=== PATIENT | male | born 1995 | race Caucasian/White ===

== ENCOUNTER 2017-09-06 16:52 | Emergency (ER) | payer OTHER ==
--- NOTE | 2017-09-06 17:56 | ED ---
Respiratory - HPI Summary HPI Summary: 21 YO M SINUS PRESSURE WITH YELLOW RHINORRHEA WITH SORE THROAT FOR DAYS. - History of Current Complaint Chief Complaint: UCRespiratory Stated Complaint: URI Time Seen by Provider: 09/06/17 17:40 - Allergy/Home Medications Allergies/Adverse Reactions: Allergies Allergy/AdvReac Type Severity Reaction Status Date / Time Cefdinir Allergy Rash Verified 09/06/17 17:01 Home Medications: Home Medications Calcium Carbonate [Calcium] 500 mg PO DAILY 09/06/17 [History Confirmed 09/06/17 ] Cetirizine* [ZyrTEC 10 MG TAB*] 10 mg PO DAILY 09/06/17 [History Confirmed 09/06] PMH/Surg Hx/FS Hx/Imm Hx EENT History: Reports: Other - DEVIATED SEPTUM AND RECURRENT SINUSITIS - Surgical History Surgery Procedure, Year, and Place: wrist Infectious Disease History: No Infectious Disease History: Denies: Hx Clostridium Difficile, Hx Hepatitis, Hx Human Immunodeficiency Virus (HIV), Hx of Known/Suspected MRSA, Hx Shingles, Hx Tuberculosis, Hx Known/ Suspected VRE, Hx Known/Suspected VRSA, History Other Infectious Disease, Traveled Outside the [place] in Last 30 Days - Social History Alcohol Use: Rare Substance Use Type: Reports: None Smoking Status (MU): Never Smoked Tobacco Review of Systems Negative: Fever Eyes: Negative Positive: Sore Throat, Nasal Discharge Cardiovascular: Negative Positive: Cough Gastrointestinal: Negative Genitourinary: Negative Musculoskeletal: Negative Skin: Negative Neurological: Negative Psychological: Normal All Other Systems Reviewed And Are Negative: Yes Physical Exam Triage Information Reviewed: Yes Vital Signs On Initial Exam: Initial Vitals Temp Pulse Resp Pulse Ox 98.3 F 70 20 100 09/06/17 17:03 09/06/17 17:03 09/06/17 17:03 09/06/17 17:03 Vital Signs Reviewed: Yes Appearance: Positive: Ill-Appearing - MILD Skin: Positive: Warm, Skin Color Reflects Adequate Perfusion Head/Face: Positive: Normal Head/Face Inspection Eyes: Positive: Normal, EOMI, LYNETTE ENT: Positive: Pharyngeal erythema, Tonsillar swelling. Negative: Muffled voice Neck: Positive: Supple, Enlarged Nodes @ - ANTERIOR Cardiovascular: Positive: Normal, RRR Abdomen Description: Positive: Nontender Bowel Sounds: Positive: Present Musculoskeletal: Positive: Normal Neurological: Positive: Normal Psychiatric: Positive: Normal AVPU Assessment: Alert Diagnostics - Vital Signs Vital Signs Temp Pulse Resp Pulse Ox 09/06/17 17:03 98.3 F 70 20 100 - Laboratory Lab Results: Lab Results 09/06/17 Range/Units 17:02 Group A Strep Rapid Negative (Negative) Lab Statement: Any lab studies that have been ordered have been reviewed, and results considered in the medical decision making process. Disposition - Course Course Of Treatment: DISCUSSES SX CARE/ABX RX. AT THIS TIME, WITH HX OF RECURRENT SINUSITIS, THE PATIENT PREFERS TO HAVE ABX RX. - Diagnoses Provider Diagnoses: Sinusitis, Pharyngitis Discharge - Discharge Plan Condition: Stable Disposition: HOME Prescriptions: Amoxicillin/Clavulanate TAB* [Augmentin TAB 875*] 875 mg PO BID #20 tab Patient Education Materials: Pharyngitis (ED), Sinusitis (ED) Referrals: [facility] @ [Outside] Additional Instructions: FOLLOW UP WITH YOUR DOCTOR. GET RECHECKED FOR ANY WORSENING OF YOUR CONDITION OR QUESTIONS OR CONCERNS.
== END 2017-09-06 18:01 | disposition home or self-care (01) ==
LOC: UCEAST 16:52
DX: J32.9 Chronic sinusitis, unspecified (principal); J02.9 Acute pharyngitis, unspecified; J34.2 Deviated nasal septum; Z88.1 Allergy status to other antibiotic agents
CPT/HCPCS: 87651; 99202; G0463

== ENCOUNTER 2018-06-28 14:01 | Emergency (ER) | payer OTHER ==
[2018-06-28 14:21] VITALS: BP 115/65
--- NOTE | 2018-06-28 14:39 | UC ---
Respiratory Complaint HPI - HPI Summary HPI Summary: 22 y/o male presents to the urgent care c/o RT side rib pain s/p being hit on the RT side of chest by another player during a basketball game 2 days ago. Pain has increased , specially laying down or w/ deep breathing. Pain is 7/10 sharp w/ movement and sleeping. he has not been able to sleep well last night. He has midl nausea last night. Pt has taking Ibuprofen PO to alleviate symptoms. Pt denies SOB, difficulty breathing, chest pain, abdominal pain, V/D, dizziness. - History of Current Complaint Chief Complaint: UCGeneralIllness Stated Complaint: ABD PAIN, DIFFICULTY BREATHING IN PRONE POSITION Time Seen by Provider: 06/28/18 14:37 Hx Obtained From: Patient Onset/Duration: Sudden Onset, Lasting Days - 2 days ago, Still Present, Worse Since - yesterday Timing: Intermittent Episodes Severity Initially: Moderate Severity Currently: Moderate Pain Intensity: 7 Pain Scale Used: 0-10 Numeric Aggravating Factors: Recumbent Position, Other - certain movment and deep breathing Alleviating Factors: OTC Meds - ibuprofen 200mg PO Associated Signs And Symptoms: Positive: Negative. Negative: Dyspnea, Fever, Chills, Wheezing, Dizziness, URI, Nasal Congestion - Risk Factors Pulmonary Embolism Risk Factors: Negative Cardiac Risk Factors: Negative Pseudomonas Risk Factors: Negative Tuberculosis Risk Factors: Negative - Allergies/Home Medications Allergies/Adverse Reactions: Allergies Allergy/AdvReac Type Severity Reaction Status Date / Time cefdinir Allergy Rash Verified 06/28/18 14:14 PMH/Surg Hx/FS Hx/Imm Hx Previously Healthy: Yes - Pt denies PMHX - Surgical History Surgical History: Yes Surgery Procedure, Year, and Place: right wrist fracture - Family History Known Family History: Positive: Diabetes - Social History Occupation: Student Lives: With Family Alcohol Use: Rare Substance Use Type: None Smoking Status (MU): Never Smoked Tobacco - Immunization History Vaccination Up to Date: Yes Review of Systems Constitutional: Negative Skin: Negative Eyes: Negative ENT: Negative Respiratory: Negative Cardiovascular: Negative Gastrointestinal: Nausea Genitourinary: Negative Motor: Negative Neurovascular: Negative Musculoskeletal: Other: - RT side rib pain s/p injury Neurological: Negative Psychological: Negative Is Patient Immunocompromised?: No All Other Systems Reviewed And Are Negative: Yes Physical Exam - Summary Physical Exam Summary: Vital Signs Reviewed: Yes General: well developed, well nourished male adolescent sitting in the examining table w/o any apparent distress Eyes: Positive: Conjunctiva Clear - PERRLA, EOMI, fundi grossly normal ENT: Positive: Normal ENT inspection, Hearing grossly normal, Pharynx normal, Nasal congestion - edematous and erythematous nasal mucosa, Nasal drainage - yellowish drainage, TMs normal. Negative: Tonsillar swelling, Tonsillar exudate Neck: Positive: Supple, Nontender, No Lymphadenopathy Respiratory: no orthopnea or dyspnea. Able to speak in full sentences, no retractions or accessory muscle use, no tripod position, stridor, or head bobbing. Positive breath sounds bilaterally. No wheezing, rhonchi , no crackles or rales. Point tenderness over the RT side of chest around ribs 8-10 w/o any ecchymosis or bruising, swelling. Pain elicit upon standing or movement of w/ deep breathing Cardiovascular: Positive: RRR, No Murmur, Pulses Normal, Brisk Capillary Refill Abdomen Description: Positive: Nontender, No Organomegaly, Soft. Negative: CVA Tenderness (R), CVA Tenderness (L) Bowel Sounds: Positive: Present Musculoskeletal Exam: Normal Musculoskeletal: Positive: Strength Intact, ROM Intact, No Edema Neurological Exam: Normal Psychological Exam: Normal Skin Exam: Normal Triage Information Reviewed: Yes Vital Signs: Initial Vital Signs Temp 97.6 F 06/28/18 14:16 Pulse 72 06/28/18 14:16 Resp 16 06/28/18 14:16 BP 115/65 06/28/18 14:16 Pulse Ox 99 06/28/18 14:16 Diagnostic Evaluation - Laboratory O2 Sat by Pulse Oximetry: 99 Respiratory Course/Dx - Course Course Of Treatment: 22 y/o male presents to the urgent care c/o RT side rib pain s/p being hit on the RT side of chest by another player during a basketball game 2 days ago. Pain has increased , specially laying down or w/ deep breathing. Pain is 7/10 sharp w/ movement and sleeping. he has not been able to sleep well last night. He has midl nausea last night. Pt has taking Ibuprofen PO to alleviate symptoms. Pt denies SOB, difficulty breathing, chest pain, abdominal pain, V/D, dizziness. Hx obtained. Pt w/ Positive breath sounds bilaterally. No wheezing, rhonchi , no crackles or rales. Point tenderness over the RT side of chest around ribs 8-10 w/o any ecchymosis or bruising, swelling. Pain elicit upon standing or movement of w/ deep breathing on examination. O2Sat: 99%. Pt is hemodynamically stable. RT Rib and Chest X-ray ordered to r/o fracture. Impression:Possible nondisplaced fracture of the anterior Rib 9, no pneumothorax or effusion observed. Pt's symptoms discussed w / DR Vogel and he recommended Incentive spirometry if Pt w/o any abdominal tenderness. Pt's Abdomen is WNL. Pt given an Incentive Spirometer to improve lung function and avoid atelectasis. Nurse educated Pt on how to use it. Pt Rx Ibuprofen PO and advised to f/u w/ his PCP for further management on his Rib fracture. Also advised to avoid strenuous exercise or heavy lifting. D/C instructions explained. Pt understood and agreed w/ plan of care and lef eft clinic ambulating and hemodynamically stable. - Differential Dx/Diagnosis Differential Diagnosis/HQI/PQRI: Bronchitis, Lower Resp Infection, Other - chostochondritis, rib fracture, hematoma Provider Diagnoses: 1- Rt side rib pain s/p injury. 2- RT anterior nondisplaced fracture of RIB 9 Discharge - Sign-Out/Discharge Documenting (check all that apply): Patient Departure - D/c home All imaging exams completed and their final reports reviewed: Yes - Discharge Plan Condition: Stable Disposition: HOME Prescriptions: Ibuprofen TAB* [Motrin TAB* 800 MG] 800 mg PO Q6H PRN #30 tab PRN Reason: Pain Patient Education Materials: Rib Fracture (ED) Forms: *School Release Referrals: [facility] [place] [facility] [Outside] - 3 Days Additional Instructions: 1-Please take ibuprofen PO q6-8hrs prn as instructed after meals to alleviate pain and swelling. rest and avoid strenuous exercise or heavy lifting 2-Please use the Incentive Spirometry as the Nurse explained to improve lung function 3-If symptoms do not improve or worsen please f/u w/ your PCP in 3 days for further evaluation and treatment. 4- If your develop severe SOB, difficulty breathing or severe abdominal pain please go immediately to the ER for further management - Billing Disposition and Condition Condition: STABLE Disposition: Home - Attestation Statements Provider Attestation: Per institutional requirements, I have reviewed the chart, however, I was not consulted specifically or made aware of this patient by the midlevel provider. I did not personally evaluate, interact with , or disposition this patient.
--- NOTE | 2018-06-28 15:14 | RAD ---
INDICATION: Right rib injury. COMPARISON: There are no relevant prior studies available for comparison. TECHNIQUE: 4 views of the right ribs and dual-energy PA views of the chest were obtained. FINDINGS: There is a nondisplaced fracture of the anterior right ninth rib. No other fractures are seen. The heart is within normal limits in size. The lungs are clear. There is no evidence for pneumothorax or pleural effusion. IMPRESSION: NONDISPLACED FRACTURE OF THE ANTERIOR RIGHT NINTH RIB.
== END 2018-06-28 15:42 | disposition home or self-care (01) ==
LOC: UCEAST 14:01
DX: S22.31XA Fracture of one rib, right side, initial encounter for closed fracture (principal); W50.0XXA Accidental hit or strike by another person, initial encounter; Y93.67 Activity, basketball; Y92.310 Basketball court as the place of occurrence of the external cause; Z88.1 Allergy status to other antibiotic agents
CPT/HCPCS: 99211; G0463

== ENCOUNTER 2018-08-07 13:27 | Emergency (ER) | payer MEDICAID, OTHER ==
[2018-08-07 13:35] VITALS: BP 125/80
--- NOTE | 2018-08-07 13:39 | UC ---
Throat Pain/Nasal Peter HPI - HPI Summary HPI Summary: 22 yo male presents with sinus pain/pressure/congestion for the last week. He tells me that he has a history of recurrent sinus infections. He has been taking mucinex, ibuprofen, and using flonase with no relief of his symptoms. Yesterday he started with a mildly productive cough that he contributes to post nasal drip. Denies fever, chills. - History of Current Complaint Chief Complaint: UCRespiratory Stated Complaint: THROAT PAIN Time Seen by Provider: 08/07/18 13:39 Hx Obtained From: Patient Onset/Duration: Gradual Onset Severity: Moderate Pain Intensity: 7 Pain Scale Used: 0-10 Numeric - Allergies/Home Medications Allergies/Adverse Reactions: Allergies Allergy/AdvReac Type Severity Reaction Status Date / Time cefdinir Allergy Rash Verified 08/07/18 13:35 Home Medications: Home Medications Dm/Acetaminophen/Doxylamine [Night Cold-Flu Relief Liq Gel] 1 each PO ONCE PRN 08/07/18 [History Confirmed 08/07/18] Pseudoephedrine HCl [Sudafed 12 Hour] 1 tab PO ONCE PRN 08/07/18 [History Confirmed 08/07/18] PMH/Surg Hx/FS Hx/Imm Hx - Additional Past Medical History Additional PMH: None - Surgical History Surgical History: Yes Surgery Procedure, Year, and Place: right wrist fracture - Family History Known Family History: Positive: Diabetes - Social History Occupation: Student Lives: Dormitory/Roommates Alcohol Use: Occasionally Substance Use Type: None Smoking Status (MU): Never Smoked Tobacco - Immunization History Vaccination Up to Date: Yes Review of Systems Constitutional: Negative Skin: Negative Eyes: Negative ENT: Nasal Discharge, Sinus Congestion, Sinus Pain/Tenderness Respiratory: Negative Cardiovascular: Negative Gastrointestinal: Negative Neurovascular: Negative Neurological: Negative Psychological: Negative All Other Systems Reviewed And Are Negative: Yes Physical Exam - Summary Physical Exam Summary: GENERAL: NAD. WDWN. No pain distress. SKIN: No rashes, sores, lesions, or open wounds. HEENT: Head: AT/NC Eyes: EOM intact. Conjunctiva clear without inflammation or discharge. Ears: Hearing grossly normal. TMs intact, no bulging, erythema, or edema. Nose: Nasal mucosa mildly swollen and erythematous with clear discharge. TTP maxillary sinus. NTTP frontal sinus. Positive post nasal drip Throat: Posterior oropharynx without exudates, erythema, or tonsillar enlargement. Uvula midline. NECK: Supple. Nontender. No lymphadenopathy. CHEST: CTAB. No r/r/w. No accessory muscle use. Breathing comfortably and in no distress. CV: RRR. Without m/r/g. Pulses intact. NEURO: Alert. PSYCH: Age appropriate behavior. Triage Information Reviewed: Yes Vital Signs: Initial Vital Signs Temp 97.7 F 08/07/18 13:31 Pulse 68 08/07/18 13:31 Resp 18 08/07/18 13:31 BP 125/80 08/07/18 13:31 Pulse Ox 98 08/07/18 13:31 Vital Signs Reviewed: Yes Throat Pain/Nasal Course/Dx - Course Course Of Treatment: Sinusitis - Differential Dx/Diagnosis Provider Diagnoses: Sinusitis Discharge - Sign-Out/Discharge Documenting (check all that apply): Patient Departure All imaging exams completed and their final reports reviewed: No Studies - Discharge Plan Condition: Stable Disposition: HOME Prescriptions: Amoxicillin/Clavulanate TAB* [Augmentin TAB 875*] 875 mg PO BID #14 tab Patient Education Materials: Sinusitis (ED) Referrals: No Primary Care Phys,NOPCP [Primary Care Provider] - Additional Instructions: If you develop a fever, shortness of breath, chest pain, new or worsening symptoms - please call your PCP or go to the ED. - Billing Disposition and Condition Condition: STABLE Disposition: Home
== END 2018-08-07 13:54 | disposition home or self-care (01) ==
LOC: UCEAST 13:27
DX: J32.9 Chronic sinusitis, unspecified (principal); Z88.1 Allergy status to other antibiotic agents
CPT/HCPCS: 99212; G0463

== ENCOUNTER 2019-09-17 18:04 | Emergency (ER) | payer OTHER, MEDICAID ==
[2019-09-17 18:30] VITALS: BP 128/65
--- NOTE | 2019-09-17 19:09 | UC ---
Lower Extremity/Ankle HPI - HPI Summary HPI Summary: 24-year-old male presents with complaints of right ankle pain and swelling. States last evening he was playing basketball, jumped for the ball, landed on another players foot causing an inversion injury to the ankle. States he felt a "pop" in the ankle. Reports he was able to walk and bear weight immediately after and since the injury however has been having progressively worsening pain especially to the medial ankle. Has been taking ibuprofen with good relief of pain. Denies any numbness or tingling. - History of Current Complaint Chief Complaint: UCLowerExtremity Stated Complaint: ANKLE INJURY Time Seen by Provider: 09/17/19 19:03 Hx Obtained From: Patient Pain Intensity: 5 - Allergies/Home Medications Allergies/Adverse Reactions: Allergies Allergy/AdvReac Type Severity Reaction Status Date / Time cefdinir Allergy Rash Verified 09/17/19 18:30 Home Medications: Home Medications NK [No Home Medications Reported] 09/17/19 [History Confirmed 09/17/19] PMH/Surg Hx/FS Hx/Imm Hx Previously Healthy: Yes - Denies significant PMH - Surgical History Surgical History: Yes Surgery Procedure, Year, and Place: right wrist fracture - Family History Known Family History: Positive: Diabetes - Social History Occupation: Student Lives: Dormitory/Roommates Alcohol Use: Occasionally Substance Use Type: None Smoking Status (MU): Never Smoked Tobacco - Immunization History Vaccination Up to Date: Yes Review of Systems All Other Systems Reviewed And Are Negative: Yes Constitutional: Positive: Negative Skin: Positive: Bruising Respiratory: Positive: Negative Cardiovascular: Positive: Negative Gastrointestinal: Positive: Negative Genitourinary: Positive: Negative Motor: Negative: Weakness Neurovascular: Negative: Decreased Sensation Musculoskeletal: Positive: Other: - See HPI Neurological: Positive: Negative Is Patient Immunocompromised?: No Physical Exam - Summary Physical Exam Summary: GENERAL APPEARANCE: Well developed, well nourished, alert and cooperative, and appears to be in no acute distress. CARDIAC: Normal S1 and S2. No S3, S4 or murmurs. Rhythm is regular. There is no peripheral edema, cyanosis or pallor. Extremities are warm and well perfused. Capillary refill is less than 2 seconds. Peripheral pulses intact. LUNGS: Clear to auscultation without rales, rhonchi, wheezing or diminished breath sounds. ABDOMEN: Positive bowel sounds. Soft, nondistended, nontender. No guarding or rebound. No masses or hepatosplenomegally. MUSKULOSKELETAL: ROM intact to all extremities. No joint erythema or tenderness. Normal muscular development. Normal gait. EXTREMITIES: Tenderness over the lateral and medial malleolus of the right ankle with ecchymosis and moderate edema. No laxity. Circulation and sensation intact. SKIN: Skin normal color, texture and turgor. Triage Information Reviewed: Yes Vital Signs: Initial Vital Signs Temp 98.7 F 09/17/19 18:25 Pulse 62 09/17/19 18:25 Resp 16 09/17/19 18:25 BP 128/65 09/17/19 18:25 Pulse Ox 99 09/17/19 18:25 Vital Signs Reviewed: Yes Procedures - Splinting Right Lower Extremity Location: right ankle Hand-Made Type: orthoglass Splint: posterior short leg Pre-Proc Neuro Vasc Exam: normal Post-Proc Neuro Vasc Exam: normal Splint Applied by Provider: Zander Jimenez Diagnostics - Radiology No standard instances Radiology Interpretation Completed By: ED Physician - Avulsion fractures of the lateral and medial malleolus of the right ankle. Lower Extremity Course/Dx - Course Course Of Treatment: 24-year-old male presents with complaints of right ankle pain and swelling. States last evening he was playing basketball, jumped for the ball, landed on another players foot causing an inversion injury to the ankle. States he felt a "pop" in the ankle. Reports he was able to walk and bear weight immediately after and since the injury however has been having progressively worsening pain especially to the medial ankle. Has been taking ibuprofen with good relief of pain. Denies any numbness or tingling. Afebrile. Vital signs stable. Patient had tenderness over the lateral and medial malleolus of the right ankle with ecchymosis and moderate edema. No laxity noted. Circulation and sensation intact. Preliminary reading of the x-ray showed avulsion fractures of both the lateral and medial malleolus. Reviewed results with the patient. I placed him in a posterior short leg splint using Ortho-Glass. Circulation and sensation were intact pre-and post-application. Patient is to remain nonweightbearing and were provided crutches with instructions. Recommending conservative treatment including [id number] analgesics and RICE. He is to follow-up with orthopedic surgery either here or at home within 1-3 days. Splint care, anticipatory guidance, and warning symptoms were reviewed with the patient. Verbalizes understanding and agrees with plan of care. - Differential Dx/Diagnosis Differential Diagnosis/HQI/PQRI: Dislocation, Fracture (Closed), Sprain Provider Diagnosis: Avulsion fracture of lateral malleolus, Avulsion fracture of medial malleolus Discharge ED - Sign-Out/Discharge Documenting (check all that apply): Patient Departure All imaging exams completed and their final reports reviewed: No - Discharge Plan Condition: Stable Disposition: HOME Patient Education Materials: Ankle Fracture (ED), Crutch Instructions (ED), Splint Care (ED) Referrals: No Primary Care Phys,NOPCP [Primary Care Provider] - Baldev Beltrán MD [Medical Doctor] - 1 Day (Follow up in 1-3 days for further evaluation and treatment.) Additional Instructions: The x-ray performed in the clinic today showed evidence of an avulsion fracture of the lateral and medial malleolus of the right ankle. Rest the ankle as much as possible. You should remain non-weightbearing until follow up with orthopedic surgery. Use the crutches provided. Keep the splint in place at all times. Do not get this wet. Apply ice to the affected area for 15-20 minutes at least 4 times a day to help with the pain and swelling. Elevate the leg to help reduce swelling. Take acetaminophen (Tylenol) or ibuprofen (Advil, Motrin) according to directions as needed for pain. Follow up with orthopedic surgery in 1-3 days if symptoms do not improve. Seek immediate medical attention if you have severe pain not managed with pain medication, you are unable to walk or bear any weight, develop numbness or tingling in the foot or toes, or have any worsening of symptoms. - Billing Disposition and Condition Condition: STABLE Disposition: Home
--- NOTE | 2019-09-18 14:39 | UC ---
- Progress Note Progress Note: RADIOLOGY REPORT REVIEWED. SOFT TISSUE SWELLING. IN ADDITION THERE ARE MULTIPLE CALCIFIC DENSITIES ADJACENT TO THE MEDIAL AND LATERAL MALLEOLI SUGGESTIVE OF OLD FRACTURE FRAGMENTS. SO NO ACUTE BONY INJURY. NO CHANGE IN MGMT. CALLED PT TO NOTIFY OF OFFICIAL REPORT AND LEFT MESSAGE TO CALL BACK. Course/Dx - Diagnoses Provider Diagnoses: Avulsion fracture of lateral malleolus, Avulsion fracture of medial malleolus Discharge ED - Sign-Out/Discharge Documenting (check all that apply): Post-Discharge Follow Up All imaging exams completed and their final reports reviewed: Yes - Discharge Plan Condition: Stable Disposition: HOME Patient Education Materials: Ankle Fracture (ED), Crutch Instructions (ED), Splint Care (ED) Referrals: Baldev Beltrán MD [Medical Doctor] - 1 Day (Follow up in 1-3 days for further evaluation and treatment.) No Primary Care Phys,NOPCP [Primary Care Provider] - Additional Instructions: The x-ray performed in the clinic today showed evidence of an avulsion fracture of the lateral and medial malleolus of the right ankle. Rest the ankle as much as possible. You should remain non-weightbearing until follow up with orthopedic surgery. Use the crutches provided. Keep the splint in place at all times. Do not get this wet. Apply ice to the affected area for 15-20 minutes at least 4 times a day to help with the pain and swelling. Elevate the leg to help reduce swelling. Take acetaminophen (Tylenol) or ibuprofen (Advil, Motrin) according to directions as needed for pain. Follow up with orthopedic surgery in 1-3 days if symptoms do not improve. Seek immediate medical attention if you have severe pain not managed with pain medication, you are unable to walk or bear any weight, develop numbness or tingling in the foot or toes, or have any worsening of symptoms. - Billing Disposition and Condition Condition: STABLE Disposition: Home
== END 2019-09-17 20:32 | disposition home or self-care (01) ==
LOC: UCEAST 18:04
DX: S82.841A Displaced bimalleolar fracture of right lower leg, initial encounter for closed fracture (principal); X50.9XXA Other and unspecified overexertion or strenuous movements or postures, initial encounter; Y93.67 Activity, basketball; Y92.9 Unspecified place or not applicable; Z88.1 Allergy status to other antibiotic agents
CPT/HCPCS: 99213; G0463

== ENCOUNTER 2019-11-21 17:43 | Emergency (ER) | payer MEDICAID, OTHER ==
[2019-11-21 18:06] VITALS: BP 116/69
--- NOTE | 2019-11-21 19:31 | UC ---
Lower Extremity/Ankle HPI - HPI Summary HPI Summary: 24-year-old male presenting with left lateral ankle pain 2 days. Patient states he was playing basketball when he "came down with all his weight on his left foot." Patient states he was able to walk after but unable to continue to play. States the swelling didn't occur until yesterday. Denies any bruising. Denies decreased range of motion. Denies pain at rest but notes pain worse with weightbearing. He does note prior fractures of both ankles, one being the tibia and the other being the fibula, but is unsure which was which. - History of Current Complaint Chief Complaint: UCLowerExtremity Stated Complaint: ANKLE INJURY Hx Obtained From: Patient Pain Intensity: 6 Pain Scale Used: 0-10 Numeric - Allergies/Home Medications Allergies/Adverse Reactions: Allergies Allergy/AdvReac Type Severity Reaction Status Date / Time cefdinir Allergy Severe Rash Verified 11/21/19 18:07 Home Medications: Home Medications Ibuprofen TAB* [Motrin TAB* 600 MG] 1 tab PO TID 11/21/19 [History Confirmed ] PMH/Surg Hx/FS Hx/Imm Hx Previously Healthy: Yes - Surgical History Surgical History: Yes Surgery Procedure, Year, and Place: right wrist fracture - Family History Known Family History: Positive: Diabetes - Social History Alcohol Use: Occasionally Substance Use Type: None Smoking Status (MU): Never Smoked Tobacco - Immunization History Vaccination Up to Date: Yes Review of Systems All Other Systems Reviewed And Are Negative: No Constitutional: Positive: Negative Skin: Positive: Negative Respiratory: Positive: Negative Cardiovascular: Positive: Negative Neurovascular: Positive: Negative Musculoskeletal: Positive: Arthralgia - L lateral ankle pain, Edema - L lateral ankle. Negative: Decreased ROM Neurological/Mental Status: Positive: Negative. Negative: Paresthesia, Numbness Physical Exam - Summary Physical Exam Summary: Vital Signs Reviewed: Yes A+Ox3, no distress Eyes: Conjunctiva Clear ENT: Hearing grossly normal neck: supple Respiratory: Positive: No respiratory distress, No accessory muscle use Cardiovascular: skin color reflect adequate perfusion Musculoskeletal Exam: +TTP of posterolateral left ankle, edema noted over lateral malleolus, no erythema or ecchymosis, ankle ROM intact, strength intact , sensation grossly intact, strong pedal pulse, cap refill <2 sec Neurological: Positive: Alert, ambulatory without difficulty Psychological: Positive: age appropriate behavior Skin: Positive: no rash, no ecchymosis Vital Signs: Initial Vital Signs Temp 99.8 F 11/21/19 18:01 Pulse 72 11/21/19 18:01 Resp 16 11/21/19 18:01 BP 116/69 11/21/19 18:01 Pulse Ox 98 11/21/19 18:01 Diagnostics - Radiology left ankle Radiology Interpretation Completed By: ED Physician Summary of Radiographic Findings: neg fx Lower Extremity Course/Dx - Course Course Of Treatment: Discussed initial negative radiograph reviewed with patient and informed him that the final report be given in the morning and he'll be notified with any abnormalities. Patient declined Jerod wrap, ankle brace, and cam boot. Instructed to continue with rest, ice, elevation, and OTC analgesics. Instructed to follow up with PCP or ortho if pain persists. Patient voiced understanding and agreed with the treatment plan. - Differential Dx/Diagnosis Differential Diagnosis/HQI/PQRI: Contusion, Fracture (Closed), Sprain, Strain, Tendonitis Provider Diagnosis: Left ankle sprain Discharge ED - Sign-Out/Discharge Documenting (check all that apply): Patient Departure All imaging exams completed and their final reports reviewed: No - Discharge Plan Condition: Stable Disposition: HOME Patient Education Materials: Ankle Sprain (ED) Referrals: [facility] [Outside] - If Needed Additional Instructions: As discussed, your radiograph was reviewed by the provider that treated you tonight. It will be read by a radiologist tomorrow morning. If there is a finding other than that discussed with you today, you will receive a call from a care provider. Rest, ice, elevate, and use your jerod wrap and ankle brace at home to help alleviate pain and swelling. You may also take over the counter pain medications as directed. Follow up with your primary care provider or sports medicine listed below if pain persists. - Billing Disposition and Condition Condition: STABLE Disposition: Home
--- NOTE | 2019-11-22 07:14 | UC ---
- Progress Note Progress Note: wet read correct Course/Dx - Diagnoses Provider Diagnoses: Left ankle sprain Discharge ED - Sign-Out/Discharge Documenting (check all that apply): Post-Discharge Follow Up All imaging exams completed and their final reports reviewed: Yes - Discharge Plan Condition: Stable Disposition: HOME Patient Education Materials: Ankle Sprain (ED) Forms: *School Release Referrals: [facility] [Outside] - If Needed Additional Instructions: As discussed, your radiograph was reviewed by the provider that treated you tonight. It will be read by a radiologist tomorrow morning. If there is a finding other than that discussed with you today, you will receive a call from a care provider. Rest, ice, elevate, and use your jessy wrap and ankle brace at home to help alleviate pain and swelling. You may also take over the counter pain medications as directed. Follow up with your primary care provider or sports medicine listed below if pain persists. - Billing Disposition and Condition Condition: STABLE Disposition: Home
== END 2019-11-21 20:10 | disposition home or self-care (01) ==
LOC: UCEAST 17:43
DX: S93.402A Sprain of unspecified ligament of left ankle, initial encounter (principal); Z88.1 Allergy status to other antibiotic agents; X58.XXXA Exposure to other specified factors, initial encounter; Y93.67 Activity, basketball; Y92.9 Unspecified place or not applicable
CPT/HCPCS: 99211; G0463